=== PATIENT | male | born 1955 ===

== ENCOUNTER 2023-11-13 13:15 | Outpatient (CLI) | payer MEDICARE, BC ==
[~2023-11-13 13:15] MED LIST: Magnevist 469MG/ML 20 ML VIAL ONE
== END 2023-11-13 13:16 | disposition home or self-care (01) ==
LOC: CSHMRI 13:15
PROVIDERS: ATTEND Internal Medicine
DX: K76.89 Other specified diseases of liver (principal)
CPT/HCPCS: 74183

== ENCOUNTER 2024-02-14 08:54 | Outpatient (CLI) | payer MEDICARE, BC ==
[2024-02-14] MEDS ORDERED: Iopamidol 300 61% 100 ML VIAL FS ONE (10:26)
== END 2024-02-14 08:55 | disposition home or self-care (01) ==
LOC: CSHCT 08:54
PROVIDERS: ATTEND Nurse Practitioner Critical Care Medicine
DX: C91.10 Chronic lymphocytic leukemia of B-cell type not having achieved remission (principal); K63.9 Disease of intestine, unspecified; K76.89 Other specified diseases of liver; R16.1 Splenomegaly, not elsewhere classified; M43.16 Spondylolisthesis, lumbar region; N40.0 Benign prostatic hyperplasia without lower urinary tract symptoms
CPT/HCPCS: 36415; 74178; 82565 ×2; Q9967

== ENCOUNTER 2024-11-03 13:07 | Outpatient (CLI) | payer MEDICARE, BC ==
[2024-11-03] MEDS ORDERED: Iopamidol 300 61% 100 ML VIAL FS ONE (13:47)
== END 2024-11-03 13:08 | disposition home or self-care (01) ==
LOC: CSHCT 13:07
PROVIDERS: ATTEND Internal Medicine
DX: C91.10 Chronic lymphocytic leukemia of B-cell type not having achieved remission (principal); R16.1 Splenomegaly, not elsewhere classified; K76.9 Liver disease, unspecified
CPT/HCPCS: 74160